=== PATIENT | male | born 1985 | race Caucasian/White ===

== ENCOUNTER 2022-01-23 12:36 | Emergency (ER) | payer SELFPAY ==
[2022-01-23 13:00] VITALS: BP 153/89; PULSE 77; RESP 18; TEMP 37.2; O2SAT 97; BMI 38.0
[2022-01-23 14:40] VITALS: BP 153/89; PULSE 77; RESP 18; TEMP 37.2; O2SAT 97; BMI 37.9
--- NOTE | 2022-01-23 14:52 | EXP.UTC ---
Discharge Plan Disposition Patient Disposition: Home, Self-Care Condition: Good Prescriptions Prescriptions: New hydrocortisone acetate [Anusol-HC] 25 mg suppository 25 mg OK DAILY Qty: 12 0RF Referrals Follow up/Referrals: Jhonatan Abdalla MD [Primary Care Provider] - See instructions Clinical Impressions Clinical Impression: Acute hemorrhoid Instructions Patient Instructions: DI for Hemorrhoids [facility] [place] HPI General Stated complaint: possible swollen hemroid Mode of Arrival: Ambulatory Source of Information: Patient Limitations: No Limitations Time Seen by Provider: 01/23/22 14:52 Description of Symptoms (Recalled from Triage Doc. by RN): Pt reports swollen hemorrhoids. Pt reports feels like he needs to have BM but is unable to r/t swelling. Pt states no rectal bleeding History of Present Illness Provider Complaint: 36 yr old male presents for swollen hemorrhoids. Pt reports feels like he needs to have BM but is unable to r/t swelling. Pt states no rectal bleeding, pt states he had a bm yesterday and it was normal Related Data Previous Rx's Medication Instructions Recorded hydrocortisone acetate 25 mg 25 mg OK DAILY #12 ea 01/23/22 rectal suppository (Anusol-HC) Allergies Allergy/AdvReac Type Severity Reaction Status Date / Time No Known Allergies Allergy Verified 01/23/22 14:56 [facility] Social History , [employer]) Smoking Status: Current every day smoker alcohol intake: never current occupational status: employed Travel in the last 8 weeks: None ROS Obtained: Yes All systems reviewed & no additional complaints except as documented Constitutional Constitutional: Reports system reviewed and no additional complaints, except as documented Eyes Eyes: Reports system reviewed and no additional complaints, except as documented ENT Ears, Nose, Mouth, and Throat: Reports system reviewed and no additional complaints, except as documented Cardiovascular Cardiovascular: Reports system reviewed and no additional complaints, except as documented Respiratory Respiratory: Reports system reviewed and no additional complaints, except as documented Gastrointestinal Gastrointestingal: Reports system reviewed and no additional complaints, except as documented and as per HPI Genitourinary Male Genitourinary: Reports system reviewed and no additional complaints, except as documented Musculoskeletal Musculoskeletal: Reports system reviewed and no additional complaints, except as documented Integumentary/Breasts Skin/Breast: Reports system reviewed and no additional complaints, except as documented Neurologic Neurologic: Reports system reviewed and no additional complaints, except as documented Endocrine Endocrine: Reports system reviewed and no additional complaints, except as documented Hematologic/Lymphatic Henatologic/Lymphatic: Reports system reviewed and no additional complaints, except as documented Allergic/Immunologic Allergic/Immunologic: Reports system reviewed and no additional complaints, except as documented Physical Exam General General appearance: alert and in no apparent distress Head Head exam: atraumatic, normocephalic and normal inspection Eye Eye exam: Present normal appearance and PERRL Neck Neck exam: Present normal inspection, full ROM and trachea midline; Absent meningismus or lymphadenopathy Chest Chest inspection: Present symmetric chest wall rise; Absent tenderness Respiratory Respiratory exam: Present normal lung sounds bilaterally; Absent respiratory distress Cardiovascular Cardiovascular exam: Present regular rate and normal rhythm; Absent JVD Abdominal Exam Abdominal exam: Present soft and normal bowel sounds; Absent distention, tenderness or guarding Comment: dime size swollen hemroid Extremities Exam Extremities exam: Present normal inspection, full ROM and normal capillary
[2022-01-23 15:06] VITALS: BP 153/89; PULSE 77; RESP 18; TEMP 37.2; O2SAT 97
== END 2022-01-23 15:07 | disposition home or self-care (01) ==
PROVIDERS: Emergency Provider Nurse Practitioner Family; PCP Internal Medicine Adolescent Medicine
DX: K64.9 Unspecified hemorrhoids (principal)
CPT/HCPCS: 99212; G0463

== ENCOUNTER 2022-04-20 19:57 | Emergency (ER) | payer OTHER, SELFPAY ==
[2022-04-20 19:59] VITALS: BP 156/104; RESP 18; TEMP 36.7; O2SAT 98; BMI 38.6
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
--- NOTE | 2022-04-20 20:27 | PC.NURSE ---
Pt gone to RAD
--- NOTE | 2022-04-20 20:31 | PC.NURSE ---
Pt back from RAD
[2022-04-20 21:00] VITALS: BP 140/90; PULSE 88; O2SAT 97
--- NOTE | 2022-04-20 21:40 | PC.NURSE ---
Rechecked pt condition. No needs voiced at this time. Updating they are waiting for MD to come to room.
[2022-04-20 22:12] VITALS: BP 132/91; PULSE 92; RESP 16; TEMP 36.6; O2SAT 97
== END 2022-04-20 22:14 | disposition left against medical advice (07) ==
PROVIDERS: Emergency Provider Emergency Medicine; PCP Nurse Practitioner Family
DX: M79.641 Pain in right hand (principal)
CPT/HCPCS: 73130; 99281